=== PATIENT | male | born 1995 | race Caucasian/White ===

== ENCOUNTER 2017-11-14 00:11 | Emergency (ER) | END 2017-11-14 05:58 | disposition home or self-care (01) ==

== ENCOUNTER 2017-11-24 16:14 | Emergency (ER) | END 2017-11-24 17:46 | disposition home or self-care (01) ==

== ENCOUNTER 2018-12-06 13:08 | Day surgery (SDC) | payer MEDICAID, OTHER ==
[2018-12-05 17:27] VITALS: Ht 167.6 cm; Wt 100.0 kg
[2018-12-06] VITALS (18 sets, daily range): BP systolic 120–148; BP diastolic 65–80; PULSE 82–98; RESP 16–25
[~2018-12-06] VITALS: Ht 167.6 cm; Wt 100.0 kg
[~2018-12-06 13:08] MED LIST: CEFAZOLIN 2 GM/50 ML (PMX) 50 ML IVPB ONE; CHOL400T10 PO; LACTATED RINGER'S 1,000 ML IV SCH; OLAN15TA7 PO
[2018-12-06] MEDS ORDERED: BUPIVACAINE 0.5% (SDV) 30 ML INJ ONE (15:56)
[2018-12-06] MEDS ORDERED: LIDOCAINE 1% (MPF) 30 ML INJ ONE (15:56)
[2018-12-06] MEDS ORDERED: ONDANSETRON 4 MG INJ ONE (16:40)
[2018-12-06] MEDS ORDERED: DEXAMETHASONE 4 MG/ML 5 ML INJ ONE (16:40)
[2018-12-06] MEDS ORDERED: CEFAZOLIN 1 GM INJ ONE (16:40)
[2018-12-06] MEDS ORDERED: MIDAZOLAM 1 MG/ML 2 ML INJ ONE ×2 (16:40→16:57)
[2018-12-06] MEDS ORDERED: PROPOFOL 200 MG INJ ONE (16:40)
[2018-12-06] MEDS ORDERED: ROPIVACAINE 0.5 % 30 ML VIAL ONE (16:40)
[2018-12-06] MEDS ORDERED: FENTAnyl 50 MCG/ML VIAL ONE (16:40)
[2018-12-06] MEDS ORDERED: FENTAnyl 50 MCG/ML VIAL IV PRN (17:00)
[2018-12-06] MEDS ORDERED: MIDAZOLAM 1 MG/ML 2 ML INJ IV PRN (17:00)
[2018-12-06] MEDS ORDERED: OXYCODONE/ACETAMINOPHEN (5/325) TAB PO PRN (17:00)
[2018-12-06] MEDS ORDERED: MEPERIDINE 25 MG INJ IV PRN (17:00)
[2018-12-06] MEDS ORDERED: LABETALOL HCL 20MG INJ IV PRN (17:00)
[2018-12-06] MEDS ORDERED: DIPHENHYDRAMINE 50 MG INJ IV PRN (17:00)
[2018-12-06] MEDS ORDERED: hydrALAzine 20 MG INJ IV PRN (17:00)
[2018-12-06] MEDS ORDERED: ONDANSETRON 4 MG INJ IV PRN (17:00)
[2018-12-06] MEDS ORDERED: HYDROmorphONE 1 MG/5 ML IV SYRINGE IV PRN ×2 (17:00)
[2018-12-06] MEDS ORDERED: EPHEDrine 25 MG/5 ML SYG IV PRN (17:00)
[2018-12-06] MEDS ORDERED: POLYMYXIN/BACITRACIN 1L IRRIG ONE (17:15)
== END 2018-12-06 19:40 | disposition home or self-care (01) ==
LOC: SDS 13:08
PROVIDERS: ATTEND Orthopaedic Surgery Hand Surgery
DX: M24.444 Recurrent dislocation, right finger (principal); M19.141 Post-traumatic osteoarthritis, right hand; M65.841 Other synovitis and tenosynovitis, right hand
CPT/HCPCS: J0690; J1100; J2175; J2250; J2405; J2795; J3010